=== PATIENT | female | born 1970 | race African-American/Black ===

== ENCOUNTER 2018-02-26 15:11 | Emergency (ER) | payer OTHER ==
[2018-02-26 16:30] VITALS: PULSE 75; RESP 18
--- NOTE | 2018-02-26 17:03 | ED ---
Abdominal Pain HPI - General Chief Complaint: Abdominal Pain Stated Complaint: Abd Pain, Pain when urinating Time Seen by Provider: 02/26/18 16:57 Source: patient Mode of arrival: ambulatory Limitations: no limitations - History of Present Illness Initial Comments: 48yo female with past medical history hypertension presented with multiple complaints. Patient states that she has had pain with urination on and off for months now as well as pelvic pressure in the vagina and bladder. Patient does admit to occasional white discharge, denies any odor, fever, chills or night sweats. Patient states it is not as much of a pain as it is a pressure. Patient states that she is not currently sexually active, however has not had any STD testing recently. In addition patient has noted a burning sensation center her chest for months, she states increases with laying flat in bed or drinking coffee. Patient denies any current symptoms, radiation to her back, abdominal pain, nausea, vomiting or diarrhea, melena, hematochezia, hematemesis. Patient denies any parathesias of the upper extremities, jaw pain, dizziness, shortness of breath, dyspnea on exertion or lower extremity swelling. Remainder of ROS (-). VS upon arrival, elevated BP remainder within acceptable limits. Pt patient appears comfortable. No signs of distress. - Related Data Previous Rx's Medication Instructions Recorded Cephalexin [Keflex] 500 mg PO Q12HR 5 Days #10 cap 02/26/18 Allergies Allergy/AdvReac Type Severity Reaction Status Date / Time milk Allergy Dyspnea Verified 02/26/18 16:57 Milk Containing Products Allergy Dyspnea Verified 02/26/18 16:57 [Dairy] Sulfa (Sulfonamide Allergy Unknown Verified 02/26/18 16:57 Antibiotics) Childhood Review of Systems ROS Statement: Those systems with pertinent positive or pertinent negative responses have been documented in the HPI. ROS Other: All systems not noted in ROS Statement are negative. Constitutional: Denies: fever, chills, night sweats ENT: Denies: ear pain, throat pain Respiratory: Denies: cough, dyspnea, wheezes, hemoptysis, stridor Cardiovascular: Denies: chest pain, palpitations, edema Endocrine: Denies: fatigue Gastrointestinal: Reports: abdominal pain. Denies: nausea, vomiting, diarrhea, constipation, hematemesis, melena, hematochezia Genitourinary: Reports: urgency, dysuria, discharge. Denies: frequency, hematuria Musculoskeletal: Denies: back pain Skin: Denies: rash, lesions Neurological: Denies: headache, weakness, numbness, paresthesias, confusion Past Medical History Past Medical History: Asthma History of Any Multi-Drug Resistant Organisms: None Reported Past Surgical History: No Surgical Hx Reported Past Psychological History: Anxiety, Depression Smoking Status: Never smoker Past Alcohol Use History: None Reported Past Drug Use History: None Reported General Exam - General Exam Comments Initial Comments: General: The patient is awake and alert, in no distress, and does not appear acutely ill. Eye: +3 mm pupils are equal, round and reactive to light, extra-ocular movements are intact. No nystagmus. There is normal conjunctiva bilaterally. No signs of icterus. Ears, nose, mouth and throat: There are moist mucous membranes and no oral lesions. Neck: The neck is supple, there is no tenderness or JVD. Cardiovascular: There is a regular rate and rhythm. No murmur, rub or gallop is appreciated. Respiratory: Lungs are clear to auscultation, respirations are non-labored, breath sounds are equal. No wheezes, stridor, rales, or rhonchi. Gastrointestinal: No noted diaphoresis, jaundice, pallor, protecting postures or squirming. Symmetrical pigmentation of abdomen without signs of inflammation.. Umbilicus mildline, inverted without swelling. No dilated veins. Abdomen contour obese, no noted abdominal distention. No visible masses. No peristalsis, aortic pulsations, or ventral hernia. Bowel sounds audible in all 4 quadrants, unremarkable. Mild tenderness to patient of the epigastric region, no tenderness to light or deep palpation of the remainder of abdominal exam benign inch including the lower pelvic region. Liver edge, not palpable. Spleen edge, right and left kidney not palpable. Superior bladder margin non-tender. Special Testing: Negative shifting [place], [place], [place], [place], cutaneous hyperesthesia. Iliopsoas and obturator tests negative bilaterally. Negative Heel Jar test/radha sign. No CVA tenderness. Digital rectal exam deferred. Negative brown turners or cullens sign Musculoskeletal: Normal ROM, no tenderness. Strength 5/5. Sensation intact. Radial and dorsalis pedis pulses equal bilaterally 2+. Neurological: A&O x 3. CN II-XII intact, There are no obvious motor or sensory deficits. Coordination appears grossly intact. Speech is normal. Skin: Skin is warm and dry and no rashes or lesions are noted. No lower extremity edema Psychiatric: Cooperative, appropriate mood & affect, normal judgment. Vaginal exam: Mucosa moist, rugated. Female hair pattern, no external lesions or irritation. No vaginal bleeding from os. Small amount of dischrage noted in vaginal vault. Cervix pink. No cervical motion tenderness. No adnexal tenderness. Limitations: no limitations Course Vital Signs 02/26/18 02/26/18 02/26/18 16:24 21:32 22:38 Temperature 97.4 F L 98.6 F Pulse Rate 75 75 Respiratory 18 18 Rate Blood Pressure 184/115 186/128 171/113 O2 Sat by Pulse 99 99 Oximetry Medical Decision Making - Medical Decision Making Abdominal examination benign. Laboratory findings unremarkable, also within normal limits. Urinalysis revealed findings concerning for urinary tract infection. Patient be started on Keflex. Patient does admit to dysuria and midline pelvic pressure concerning for UTI. Vaginal exam as noted above. Small amount discharge, I discussed treatment patient prophylactically for STDs , patient is agreeable plan. No cervical motion tenderness or adnexal tenderness concerning for torsion, ectopic or PID. Trichomonas antigen testing negative. Patient's blood pressure elevated upon discharge. Upon multiple re- evaluations continued elevation, patient states that she her blood pressure is always elevated when she is in the hospital, she states it makes her nervous. Patient was given clonidine 0.2mg PO. Patient denies any dyspnea, chest pain, shortness breath, dizziness, visual changes, oliguria, nausea, vomiting or abdominal pain. Patient denies any current epigastric pain or back pain. Given no signs of end organ damage if the patient is stable for discharge with primary care follow-up for elevated blood pressure as well as follow-up for urinary tract infection. Patient is agreeable plan as well as discharge. Case discussed in detail with Dr. Sanchez who agrees impression plan. Patient was discharged, appearing well following more decrease in BP. Lasr recorded BP was not documented by nurse of 147/93. Nurse was aware of BP reading. - Lab Data Result diagrams: 02/26/18 17:24 02/26/18 17:24 Lab Results 02/26/18 02/26/18 02/26/18 Range/Units 17:24 17:24 17:24 WBC 6.8 (3.8-10.6) k/uL RBC 4.55 (3.80-5.40) m/uL Hgb 13.1 (11.4-16.0) gm/dL Hct 40.4 (34.0-46.0) % MCV 88.8 (80.0-100.0) fL MCH 28.9 (25.0-35.0) pg MCHC 32.5 (31.0-37.0) g/dL RDW 14.5 (11.5-15.5) % Plt Count 249 (150-450) k/uL Neutrophils % 59 % Lymphocytes % 31 % Monocytes % 6 % Eosinophils % 3 % Basophils % 0 % Neutrophils # 4.0 (1.3-7.7) k/uL Lymphocytes # 2.1 (1.0-4.8) k/uL Monocytes # 0.4 (0-1.0) k/uL Eosinophils # 0.2 (0-0.7) k/uL Basophils # 0.0 (0-0.2) k/uL Sodium 141 (137-145) mmol/L Potassium 3.9 (3.5-5.1) mmol/L Chloride 106 (98-107) mmol/L Carbon Dioxide 27 (22-30) mmol/L Anion Gap 8 mmol/L BUN 15 (7-17) mg/dL Creatinine 0.62 (0.52-1.04) mg/dL Est GFR (CKD-EPI)AfAm >90 (>60 ml/min/1.73 sqM) Est GFR (CKD-EPI)NonAf >90 (>60 ml/min/1.73 sqM) Glucose 108 H (74-99) mg/dL Calcium 9.3 (8.4-10.2) mg/dL Total Bilirubin 0.5 (0.2-1.3) mg/dL AST 44 H (14-36) U/L ALT 43 (9-52) U/L Alkaline Phosphatase 86 (38-126) U/L Total Creatine Kinase 277 H (30-135) U/L CK-MB (CK-2) 2.0 (0.0-2.4) ng/mL CK-MB (CK-2) Rel Index 0.7 Troponin I <0.012 (0.000-0.034) ng/mL Total Protein 7.8 (6.3-8.2) g/dL Albumin 4.3 (3.5-5.0) g/dL Amylase 79 (30-110) U/L Lipase 100 (23-300) U/L Urine Color Urine Appearance (Clear) Urine pH (5.0-8.0) Ur Specific [place] (1.001-1.035) Urine Protein (Negative) Urine Glucose (UA) (Negative) Urine Ketones (Negative) Urine Blood (Negative) Urine Nitrite (Negative) Urine Bilirubin (Negative) Urine Urobilinogen (<2.0) mg/dL Ur Leukocyte Esterase (Negative) Urine RBC (0-5) /hpf Urine WBC (0-5) /hpf Ur Squamous Epith Cells (0-4) /hpf Urine Bacteria (None) /hpf Trichomonas Ag (Rapid) (Negative) 02/26/18 02/26/18 Range/Units 18:55 19:25 WBC (3.8-10.6) k/uL RBC (3.80-5.40) m/uL Hgb (11.4-16.0) gm/dL Hct (34.0-46.0) % MCV (80.0-100.0) fL MCH (25.0-35.0) pg MCHC (31.0-37.0) g/dL RDW (11.5-15.5) % Plt Count (150-450) k/uL Neutrophils % % Lymphocytes % % Monocytes % % Eosinophils % % Basophils % % Neutrophils # (1.3-7.7) k/uL Lymphocytes # (1.0-4.8) k/uL Monocytes # (0-1.0) k/uL Eosinophils # (0-0.7) k/uL Basophils # (0-0.2) k/uL Sodium (137-145) mmol/L Potassium (3.5-5.1) mmol/L Chloride (98-107) mmol/L Carbon Dioxide (22-30) mmol/L Anion Gap mmol/L BUN (7-17) mg/dL Creatinine (0.52-1.04) mg/dL Est GFR (CKD-EPI)AfAm (>60 ml/min/1.73 sqM) Est GFR (CKD-EPI)NonAf (>60 ml/min/1.73 sqM) Glucose (74-99) mg/dL Calcium (8.4-10.2) mg/dL Total Bilirubin (0.2-1.3) mg/dL AST (14-36) U/L ALT (9-52) U/L Alkaline Phosphatase (38-126) U/L Total Creatine Kinase (30-135) U/L CK-MB (CK-2) (0.0-2.4) ng/mL CK-MB (CK-2) Rel Index Troponin I (0.000-0.034) ng/mL Total Protein (6.3-8.2) g/dL Albumin (3.5-5.0) g/dL Amylase (30-110) U/L Lipase (23-300) U/L Urine Color Colorless Urine Appearance Cloudy H (Clear) Urine pH 7.0 (5.0-8.0) Ur Specific [place] 1.007 (1.001-1.035) Urine Protein Trace H (Negative) Urine Glucose (UA) Negative (Negative) Urine Ketones Negative (Negative) Urine Blood Negative (Negative) Urine Nitrite Negative (Negative) Urine Bilirubin Negative (Negative) Urine Urobilinogen <2.0 (<2.0) mg/dL Ur Leukocyte Esterase Moderate H (Negative) Urine RBC 1 (0-5) /hpf Urine WBC 13 H (0-5) /hpf Ur Squamous Epith Cells 7 H (0-4) /hpf Urine Bacteria Occasional H (None) /hpf Trichomonas Ag (Rapid) Negative (Negative) - EKG Data EKG Comments: A 12-lead EKG was performed and shows the following: Rate is 95bpm, with sinus arrhythmia, . There are normal QRS complexes and normal R-wave progression. ST segments have no elevation or depression, and [place] segments appear normal. No ST elevation or depression noted. Disposition Clinical Impression: Epigastric discomfort, UTI (urinary tract infection), Vaginal discharge Disposition: HOME SELF-CARE Condition: Good Instructions: Urinary Tract Infection in Women (ED) Additional Instructions: Please use medication as discussed. Please follow-up with family doctor in the next 2 days.. Please return to emergency room if the symptoms increase or worsen or for any other concerns. Prescriptions: Cephalexin [Keflex] 500 mg PO Q12HR 5 Days #10 cap Is patient prescribed a controlled substance at d/c from ED?: No Referrals: None,Stated [Primary Care Provider] - 1-2 days [facility] [NON-STAFF] - 1-2 days Time of Disposition: 20:03
[2018-02-26 17:57] LABS: Basophils % (A) 0 %; Eosinophils # (A) 0.2 k/uL (0-0.7); Eosinophils % (A) 3 %; HCT 40.4 % (34.0-46.0); HGB 13.1 gm/dL (11.4-16.0); Lymphocytes # (A) 2.1 k/uL (1.0-4.8); Lymphocytes % (A) 31 %; MCH 28.9 pg (25.0-35.0); MCHC 32.5 g/dL (31.0-37.0); MCV 88.8 fL (80.0-100.0); Mean Platelet Volume 6.7; Monocytes # (A) 0.4 k/uL (0-1.0); Monocytes % (A) 6 %; Neutrophils % (A) 59 %; Platelet Count 249 k/uL (150-450); RBC 4.55 m/uL (3.80-5.40); RDW 14.5 % (11.5-15.5); WBC 6.8 k/uL (3.8-10.6)
[2018-02-26 18:07] LABS: ALT 43 U/L (9-52); AST 44 U/L (14-36); Albumin 4.3 g/dL (3.5-5.0); Alkaline Phosphatase 86 U/L (38-126); Amylase 79 U/L (30-110); Anion Gap 8 mmol/L; Blood Urea Nitrogen 15 mg/dL (7-17); Calcium 9.3 mg/dL (8.4-10.2); Carbon Dioxide 27 mmol/L (22-30); Chloride 106 mmol/L (98-107); Glucose 108 mg/dL (74-99); Lipase 100 U/L (23-300); Potassium 3.9 mmol/L (3.5-5.1); Sodium 141 mmol/L (137-145); Total Bilirubin 0.5 mg/dL (0.2-1.3); Total Protein 7.8 g/dL (6.3-8.2)
[2018-02-26 19:13] LABS: Appearance,Urine Cloudy (Clear); Bacteria,Urine Occasional /hpf; Bilirubin,Urine Negative (Negative); Blood,Urine Negative (Negative); Color,Urine Colorless; Glucose,Urine (UA) Negative (Negative); Ketones,Urine Negative (Negative); Leukocyte Esterase,Urine Moderate (Negative); Nitrite,Urine Negative (Negative); Protein,Urine Trace (Negative); RBC,Urine 1 /hpf (0-5); Specific Gravity,Urine 1.007 (1.001-1.035); Squamous Epithelial Cell,Urine 7 /hpf (0-4); Urobilinogen,Urine <2.0 mg/dL (<2.0)
[2018-02-26 19:22] LABS: Creatine Kinase 277 U/L (30-135)
[2018-02-26 19:35] LABS: Troponin I <0.012 ng/mL (0.000-0.034)
[2018-02-26] MEDS ORDERED: cefTRIAXone 250 MG VIAL IM STA (19:58)
[2018-02-26] MEDS ORDERED: metroNIDAZOLE 500 MG TAB PO STA (19:58)
[2018-02-26] MEDS ORDERED: AZITHROMYCIN 500 MG TAB PO STA (19:58)
[2018-02-26 21:33] VITALS: TEMP 98.6
[2018-02-26] MEDS ORDERED: cloNIDine HCL 0.2 MG TAB PO STA (21:51)
[2018-02-26 22:39] VITALS: BP 171/113
[2018-02-28 14:01] LABS: C. trachomatis,PCR Negative (Neg,Equiv); Chlamydia trachomatis Source Vagina
[2018-03-01 09:20] LABS: N. gonorrhoeae,PCR Negative (Neg,Equiv); Neisseria Source Vagina
== END 2018-02-26 23:21 | disposition home or self-care (01) ==
LOC: EC 15:11
DX: N39.0 Urinary tract infection, site not specified (principal); N89.8 Other specified noninflammatory disorders of vagina; I49.8 Other specified cardiac arrhythmias; I10 Essential (primary) hypertension; Z88.2 Allergy status to sulfonamides; Z91.011 Allergy to milk products
CPT/HCPCS: 36415; 93005; 80053; 82150; 82550; 82553; 83690; 84484; 85025; 81001; 87808; 87491; 87591; 87070; 87086; 99284; 96372; J0696; 87205